=== PATIENT | female | born 1990 | race Caucasian/White ===

== ENCOUNTER 2019-01-07 21:24 | Emergency (ER) | payer OTHER ==
[~2019-01-07] VITALS: Ht 160 cm; Wt 93.9 kg
[2019-01-07 22:04] LABS: CALCIUM 8.7 mg/dL (8.5-10.1); CHLORIDE SERUM 103 mmol/L (98-107); CREATININE SERUM 0.8 mg/dL (0.6-1.0); GFR1 > 60 mL/min; GLUCOSE SERUM 119 mg/dL (74-106); POTASSIUM SERUM 3.5 mmol/L (3.5-5.1); SODIUM SERUM 141 mmol/L (136-145)
[2019-01-07 22:07] LABS: BASOPHIL % 0.3 % (0-2); PLATELET COUNT 363 x10^3mcL (130-400); RED CELL DISTRIBUTION WIDTH 14.9 % (11.5-14.5)
[2019-01-07 22:09] LABS: ALBUMIN 3.5 g/dL (3.4-5.0); ALKALINE PHOSPHATASE 217 U/L (46-116); ALT/SGPT 376 U/L (14-59); AST/SGOT 149 U/L (15-37); BILIRUBIN TOTAL 2.4 mg/dL (0.20-1.00); LIPASE 200 IU/L (73-393)
[2019-01-08 01:57] VITALS: BP 98/57
== END 2019-01-08 01:57 | disposition home or self-care (01) ==
LOC: ED 21:24
PROVIDERS: Emergency Medicine
DX: R10.13 Epigastric pain (principal); R11.2 Nausea with vomiting, unspecified; Z98.890 Other specified postprocedural states; Z90.49 Acquired absence of other specified parts of digestive tract
CPT/HCPCS: J2270; J2405; Q0092; Q9967

== ENCOUNTER 2019-01-09 12:36 | Inpatient (IN) | payer OTHER ==
[~2019-01-09] VITALS: Ht 154.9 cm; Wt 91.2 kg
[2019-01-09 12:44] VITALS: Ht 154.9 cm; Wt 91.2 kg
--- NOTE | 2019-01-09 12:54 | NUR ---
PT BIB FAMILY C/C ABD PAIN X 3 WKS STS WAS HERE X 3 DAYS AGO BUT STS PAIN IS STILL THERE DR ARREDONDO AT BEDSIDE TO KIANA
--- NOTE | 2019-01-09 13:15 | NUR ---
PLEASE ENTER FULL NAMES OF CLINICAL TRIAL SPECIALIST/RN Patient data collected by (CLINICAL TRIAL SPECIALIST):Nighat POWELL Assessment reviewed and completed by (RN):Meng TRUONG
--- NOTE | 2019-01-09 13:20 | NUR ---
XRAY AT BEDSIDE
[2019-01-09 13:27] LABS: BASOPHIL % 0.2 % (0-2); PLATELET COUNT 394 x10^3mcL (130-400); RED CELL DISTRIBUTION WIDTH 16.2 % (11.5-14.5)
[2019-01-09 13:31] LABS: CALCIUM 8.7 mg/dL (8.5-10.1); CARBON DIOXIDE 25.8 mmol/L (21-32); CHLORIDE SERUM 101 mmol/L (98-107); CREATININE SERUM 0.7 mg/dL (0.6-1.0); GFR1 > 60 mL/min; GLUCOSE SERUM 118 mg/dL (74-106); POTASSIUM SERUM 3.4 mmol/L (3.5-5.1); SODIUM SERUM 136 mmol/L (136-145)
[2019-01-09 13:36] LABS: ALBUMIN 3.6 g/dL (3.4-5.0); ALKALINE PHOSPHATASE 291 U/L (46-116); ALT/SGPT 329 U/L (14-59); AST/SGOT 157 U/L (15-37); BILIRUBIN TOTAL 3.48 mg/dL (0.20-1.00)
[2019-01-09 13:38] LABS: TOTAL PROTEIN, SERUM 8.3 g/dL (6.4-8.2)
--- NOTE | 2019-01-09 13:55 | NUR ---
LAB CALLED TO INFORM THEY ARE GOING TO RUN THE LIPASE LAB AGAIN DUE TO HIGH RESUL. PER LAB INFORMING ABOUT THE DELAY. PRIMARY NURSE ABDIRAHMAN MADE AWARE AND
[2019-01-09 14:28] LABS: LIPASE 1946 IU/L (73-393)
[2019-01-09 14:33] LABS: T3 TOTAL 0.89 ng/mL
[2019-01-09 14:47] LABS: PHOSPHOROUS 3.2 mg/dL (2.5-4.9)
[2019-01-09 14:48] LABS: CHOLESTEROL/HDL RATIO 8.1
[2019-01-09 15:13] LABS: FREE T4 1.17 ng/dL (0.76-1.46); FREE THYROXINE INDEX 3.1 ug/dL (1.4-4.5); T4(THYROXINE) 9.6 ug/dL (4.7-13.3)
--- NOTE | 2019-01-09 15:35 | NUR ---
PT ADMIT TO [facility] ROOM 209B GAVE REPORT TO KAHLIL
--- NOTE | 2019-01-09 15:38 | NUR ---
RECEIVED REPORT FROM NAVEEN CARTER IN ED. AWAITING PATIENT ARRIVAL TO FLOOR.
[2019-01-09 15:59] VITALS: BP 115/60
--- NOTE | 2019-01-09 16:01 | NUR ---
RECEIVED PT FROM ED VIA BART. ORIENTED PT TO ROOM AND SURROUNDINGS. IV NOTED TO LAC PATENT AND INTACT. INSTRUCTED PT ON THE USE OF CALL LIGHT FOR ASSISTANCE. ENDORSED PT TO PRIMARY NURSE JANAE
--- NOTE | 2019-01-09 16:47 | NUR ---
PT C/O ABD PAIN AND NAUSEA. ZOFRAN AND NORCO ADMINISTERED (SEE eMAR). IV FLUIDS STARTED NOW.
--- NOTE | 2019-01-09 18:29 | NUR ---
IN TO ADMINISTER PO KLOR FOR POTASSIUM 3.4, ALSO INFORMED PATIENT THAT A HAT IS PLACED IN THE TOILET FOR UA/ UDS COLLECTION. PT AND FAMILY VERBALIZED UNDERSTANDING.
--- NOTE | 2019-01-09 18:54 | NUR ---
RADIO COMMUNICATIONS MECHANICIAN AT BEDSIDE FOR US ABD.
--- NOTE | 2019-01-09 19:10 | NUR ---
RECEIVED PT LAYING IN BED, NO ACUTE DISTRESS OBSERVED. PT C/O INTERMITTENT NAUSEA AND ABD PAIN, DENIES AT THIS TIME, WILL MEDICATE PRN. ABD ROUND AND SOFT WITH ACTIVE BOWEL SOUNDS, NPO AT THIS TIME ORDERED. GENERALIZED WEAKNESS, AMBULATORY AND ABLE TO REPOSITION SELF IN BED. AA/OX4, ABLE TO MAKE NEEDS KNOWN, SPEECH CLEAR AND APPROPRIATE. MED-SURG, NO TELE, NO CP. PULSES PALPABLE AND EQUAL THROUGHOUT, NO EDEMA. BREATHING ON RA, EVEN AND UNLABORED, NO SOB OR DYSPNEA. VOIDS URINE FREELY WITH BRP. IV TO LAC IN PLACE, DRY, PATENT, INTACT, AND INFUSING IVF WELL, NO S&S OF PHLEBITIS OR INFILTRATION NOTED. COMFORT AND SAFETY MEASURES IN PLACE. ALL NEEDS ASSESSED AND ATTENDED TO. CALL LIGHT WITHIN REACH. WILL CONTINUE TO MONITOR
--- NOTE | 2019-01-09 19:29 | NUR ---
REPORT GIVEN TO RICKY CARTER. PATIENT RESTING COMFORTABLY IN BED WITH FAMILY AT BEDSIDE. ALL QUESTIONS AND CONCERNS ADDRESSED. ALL CARES ENDORSED.
[2019-01-09 21:23] VITALS: BP 109/57
--- NOTE | 2019-01-09 21:35 | NUR ---
PT C/O 10/ ABD PAIN WITH NAUSEA, DISTRESS NOTED WITH FACIAL GRIMACING. MEDICATED WITH PRN MORPHINE AND ZOFRAN PER EMAR
[2019-01-09 23:50] LABS: microscopic required? YES; urine erythrocyte 3+ (NEGATIVE)
[2019-01-10 00:06] LABS: AMPHETAMINE QUAL UR NONE DETECTED (See below)
--- NOTE | 2019-01-10 04:46 | NUR ---
NO SIGNIFICANT CHANGES TO REPORT, PT COMPLIED WITH NURSING CARE THROUGHOUT THE SHIFT WITH NO ACUTE EVENTS OVERNIGHT. PT LAYING IN BED, NO ACUTE DISTRESS OBSERVED, BREATHING EVEN AND UNLABORED. COMFORT AND SAFETY MEASURES MAINTAINED. ALL NEEDS ASSESSED AND ATTENDED TO. CALL LIGHT WITHIN REACH. WILL CONTINUE TO MONITOR AND ENDORSE CARE TO DAY SHIFT NURSE
[2019-01-10 05:35] VITALS: BP 136/75
[2019-01-10 06:11] VITALS: BP 136/75
[2019-01-10 06:30] LABS: BASOPHIL % 0.1 % (0-2); PLATELET COUNT 335 x10^3mcL (130-400)
[2019-01-10 06:38] LABS: RED CELL DISTRIBUTION WIDTH 16.1 % (11.5-14.5)
[2019-01-10 06:51] LABS: ALKALINE PHOSPHATASE 272 U/L (46-116); ALT/SGPT 282 U/L (14-59); AST/SGOT 163 U/L (15-37); BILIRUBIN TOTAL 4.14 mg/dL (0.20-1.00); CARBON DIOXIDE 23.2 mmol/L (21-32); CHLORIDE SERUM 103 mmol/L (98-107); CREATININE SERUM 0.7 mg/dL (0.6-1.0); GFR1 > 60 mL/min; GLUCOSE SERUM 98 mg/dL (74-106); MAGNESIUM 1.7 mg/dL (1.8-2.4); PHOSPHOROUS 3.4 mg/dL (2.5-4.9); POTASSIUM SERUM 3.2 mmol/L (3.5-5.1); SODIUM SERUM 139 mmol/L (136-145); TOTAL PROTEIN, SERUM 7.1 g/dL (6.4-8.2)
--- NOTE | 2019-01-10 07:00 | NUR ---
RECEIVED BEDSIDE REPORT FROM VACUUM EXTRACTOR OPERATOR NURSE AT THIS TIME. PATIENT RESTING COMFORTABLY IN BED. NO APPARENT DISTRESS OR DISCOMFORT NOTED. BREATHING EVEN AND UNLABORED. NO RESPIRATORY DISTRESS OR DISCOMFORT NOTED. PATIENT DENIES CHEST PAIN AT THIS TIME. NO INDICATION OF ABD PAIN/NAUSEA AT THIS TIME. GENERALIZED JAUNDICE NOTICED. IV PATENT AND INTACT. ALL QUESTIONS AND CONCERNS ADDRESSED. ALL NEEDS ATTENDED TO. WILL CONTINUE TO MONITOR
[2019-01-10 07:15] LABS: ALBUMIN 2.8 g/dL (3.4-5.0)
[2019-01-10 08:55] VITALS: BP 132/85
--- NOTE | 2019-01-10 09:42 | NUR ---
PATIENT DOWN FOR ERCP AT THIS TIME. ALL NEEDS ATTENDED TO.
--- NOTE | 2019-01-10 10:59 | NUR ---
RECEIVED REPORT FROM MARYAN CARTER AT THIS TIME. ALL QUESTIONS AND CONCERNS ADDRESSED. ALL NEEDS ATTENDED TO. AWAITING ARRIVAL OF PATIENT ON FLOOR
--- NOTE | 2019-01-10 11:16 | NUR ---
PATIENT BACK FROM ERCP AT THIS TIME. 2L NC IN PLACE. VITAL SIGNS STABLE. ALL NEEDS ATTENDED TO. WILL CONTINUE TO MONITOR
--- NOTE | 2019-01-10 11:27 | NUR ---
PATIENT C/O 10/10 ABD PAIN AT THIS TIME. PATIENT MEDICATED WITH MORPHINE IVP. PATIENT TOLERATED WELL. NO APPARENT ADVERSE EFFECTS NOTED. ALL NEEDS ATTENDED TO. WILL CONTINUE TO MONITOR
--- NOTE | 2019-01-10 13:00 | NUR ---
PATIENT SITTING UP IN BED EATING LUNCH AT THIS TIME. PATIENT TOLERATING DIET FAIRLY. ALL NEEDS ATTENDED TO. WILL CONTINUE TO MONITOR
--- NOTE | 2019-01-10 16:41 | NUR ---
PT C/O NAUSEA AND CONSTANT CRAMPING ABD PAIN 11/23; GIVEN ONDANSETRON AND MORPHINE IVP PER EMAR; REPOSITIONED PT AND DARKENED ROOM FOR COMFORT; PT AND BOYFRIEND ALSO CONCERNED THAT RESULTS FROM ERCP HAS NOT BEEN DISCUSSED W/ THEM; EXPLAINED THAT DR HAILE WILL EXPLAIN RESULTS AND PLAN OF CARE WHEN HE COMES IN. WILL ENDORSE TO EMMA PATEL.
[2019-01-10 16:51] VITALS: BP 118/68
--- NOTE | 2019-01-10 17:00 | NUR ---
DR PRASAD AWARE PATIENT MRSA POSITIVE. DR PRASAD TO ORDER MRSA MEDICATIONS. WILL MEDICATE ORDERED. WILL CONTINUE TO MONITOR
--- NOTE | 2019-01-10 18:53 | NUR ---
PATIENT C/O ABD PAIN AT THIS TIME. MEDICATED WITH DILAUDID IVP. PATIENT TOLERATED WELL NO APPARENT ADVERSE EFFECTS NOTED. IV PATENT AND INTACT. ALL QUESTIONS AND CONCERNS ADDRESSED. ALL NEEDS ATTENDED TO. SAFETY PRECAUTIONS MAINTAINED. WILL ENDORSE ALL CARE TO VETERINARY SURGEON NURSE
--- NOTE | 2019-01-10 20:29 | NUR ---
Resting at this time. No respiratory distress noted on room air. Denies pain. Denies n/v. Father at the bedside. Will cont.to monitor. Call light within reach. Contact isolation MRSA (+)nares observed.
[2019-01-10 20:40] VITALS: BP 128/70
--- NOTE | 2019-01-10 21:00 | NUR ---
Tylenol given as ordered for temp.102.6. Blankets off and cooling measures rendered. Dr. Morrissey made aware. No new order given.
--- NOTE | 2019-01-10 22:24 | NUR ---
TEMP.went down 100.8. continue on cooling measures. In no apparent distress.
--- NOTE | 2019-01-11 04:49 | NUR ---
Afebrile. No significant change in condition noted. Pain controlled. Cont.on IV levaquin, flagyl. Denies n/v. Contact isolation MRSA nares, proper use of PPE and good hand hygiene observed.
[2019-01-11 05:08] VITALS: BP 125/91
[2019-01-11 06:17] LABS: BASOPHIL % 0.1 % (0-2); PLATELET COUNT 311 x10^3mcL (130-400); RED CELL DISTRIBUTION WIDTH 15.9 % (11.5-14.5)
[2019-01-11 06:37] LABS: ALKALINE PHOSPHATASE 244 U/L (46-116); ALT/SGPT 213 U/L (14-59); AST/SGOT 98 U/L (15-37); BILIRUBIN TOTAL 3.82 mg/dL (0.20-1.00); CARBON DIOXIDE 26.6 mmol/L (21-32); CHLORIDE SERUM 104 mmol/L (98-107); CREATININE SERUM 0.7 mg/dL (0.6-1.0); GFR1 > 60 mL/min; GLUCOSE SERUM 84 mg/dL (74-106); POTASSIUM SERUM 3.2 mmol/L (3.5-5.1); SODIUM SERUM 138 mmol/L (136-145); TOTAL PROTEIN, SERUM 6.6 g/dL (6.4-8.2)
[2019-01-11 06:42] LABS: MAGNESIUM 1.7 mg/dL (1.8-2.4); PHOSPHOROUS 2.5 mg/dL (2.5-4.9)
[2019-01-11 07:10] LABS: ALBUMIN 2.5 g/dL (3.4-5.0); LIPASE 1754 IU/L (73-393)
--- NOTE | 2019-01-11 07:30 | NUR ---
RECEIVED PT FROM TYPISTS SUPERVISOR RN. Meng/JOSE. MED SURG. DENIES CHEST PAIN/PRESSURE. RESPIRATIONS EQUAL AND UNLABORED ON RA. DENIES SOB. PT DENIES ANY N/V AT THIS TIME. PT STATES SHE ONLY FELT NAUSEOUS LAST NIGHT. PT STILL C/O ABDOMINAL PAIN AND TENDERNESS TO UPPER ABDOMEN SHARP. PT STATES "IT ONLY HURTS WHEN I MOVE OR PUT PRESSURE ON MY STOMACH." IV TO RFA PATENT AND INFUSING. NO REDNESS OR SWELLING NOTED. SIGNIFICANT OTHER AT BEDSIDE. PT ASKING TO EAT BREAKFAST. WILL CONTINUE TO MONITOR. CALL LIGHT IN REACH. BED IN LOWEST POSITION.
[2019-01-11 08:15] VITALS: BP 127/76
--- NOTE | 2019-01-11 08:49 | NUR ---
PT SITTING UP IN BED. NO ACUTE RESP DISTRESS NOTED ON RA. GIVEN PO MEDS. TOLERATED WELL. PT TEMERPATURE ORAL WAS 102.7. COOLING MEASURES IN PLACE. MEDICATED PER EMAR. PT C/O ABDOMINAL PAIN TO UPPER QUAD 8/10 SHARP. MEDICATED PER EMAR. DR. PRASAD AT BEDSIDE MADE AWARE OF FEVER. WILL CONITNUE TO MONITOR. CALL LIGHT IN REACH. BED IN LOWEST POSITION.
--- NOTE | 2019-01-11 09:53 | NUR ---
PT IN BED RESTING. NO ACUTE RESP DISTRESS NOTED ON RA. PT STATES PAIN HAS IMPROVED SINCE RECEIVING DILUADID 06/23. PT REPOSITIONED SITTING UP IN BED. GIVEN PO MEDS. TOLERATED WELL. PT ATTEMPTING TO EAT BREAKFAST. ENCOURAGED PT TO TAKE SMALL AMOUNTS. PT STATES SHE STARTED TO FEEL A LITTLE NAUSEOUS. IV ANTIBIOTICS INFUSING ORDERED TO RFA. NO REDNESS OR SWELLING NOTED. WILL CONTINUE TO MONITOR. CALL LIGHT IN REACH. BED IN LOWEST POSITION.
--- NOTE | 2019-01-11 12:09 | NUR ---
SPOKE WITH DR. BARROS GIVEN RECENT LFT AND LIPASE RESULTS, GIVEN RESULTS FROM CT ABDOMEN +PELVIS AND US ABDOMEN. PER DR. BARROS ORDER REPEAT LFT AND LIPASE FOR TOMORROW MORNING. PER DR. BARROS ORDER US ABDOMEN LIMITED FOCUSED ON RUQ ABDOMEN AMD COMMON BILE DUCT. CONFIRMED ORDER SHAKEEL.
--- NOTE | 2019-01-11 14:15 | NUR ---
PT SITTING UP IN BED. NO ACUTE RESP DISTRESS NOTED ON RA. PT GIVEN PO MEDS. TOLERATED WELL. PT STATES PAIN TO ABDOMEN IS TOLERABLE AT THIS TIME. WILL CONTINUE TO MONITOR. CALL LIGHT IN REACH. BED IN LOWEST POSITION.
[2019-01-11 16:40] VITALS: BP 127/81
--- NOTE | 2019-01-11 17:34 | NUR ---
PT SITTING UP IN BED. NO ACUTE RESP DISTRESS NOTED ON RA. PT STATES PAIN TO ABDOMEN IS INCREASING. PT ASKING TO HAVE PAIN MEDICATION AFTER EATING. GIVEN PO MEDS. TOLERATED WELL. IV ANTIBIOTICS INFUSING ORDERED. NO REDNESS OR SWELLING NOTED. WILL CONTINUE TO MONITOR. CALL LIGHT IN REACH. BED IN LOWEST POSITION.
--- NOTE | 2019-01-11 18:23 | NUR ---
PT SITTING UP IN BED. FAMILY AT BEDSIDE. PT C/O ABDOMINAL PAIN 09/23 SHARP. MEDICATED PER EMAR. PT DENIES ANY N/V AT THIS TIME. PT ASKING TO HAVE A SHOWER TOMORROW. DR. PRASAD MADE AWARE, PER DR. PRASAD WILL ORDER FOR SHOWER TOMORROW. PT INFORMED TO REMAIN NPO AFTER MIDNIGHT TONIGHT FOR US ABDOMEN. PT VERBALIZED UNDERSTANDING. WILL ENDORSE CARE TO ELECTROTYPER APPRENTICE RN. CALL LIGHT IN REACH. BED IN LOWEST POSITION.
--- NOTE | 2019-01-11 19:30 | NUR ---
PT RECEIVED A/O X4, DROWSY, ABLE TO MAKE NEEDS KNOWN. FAMILY AT BEDSIDE. MED-SURG, PT DENIES ANY CP/PRESSURE. PULSES PALPABLE, NO EDEMA PRESENT. BREATHING IS EVEN AND UNLABORED ON RA, NO RESP DISTRESS NOTED. ABD SOFT AND NONDISTENDED, PT REPORTS EPISODES OF N/V. VOIDS FREELY, BRP. GENERALIZED WEAKNESS, AMBULATORY WITH ASSIST. SKIN IS WARM AND DRY, INTACT. PT DENIES HAVING ANY PAIN AT THIS TIME. IVF INFUSING WELL TO RW, SITE WNL. NO ACUTE DISTRESS NOTED. BED IN LOWEST SETTING, SIDE RAILS UP X2, CALL LIGHT WITHIN REACH. WILL CONT TO MONITOR.
--- NOTE | 2019-01-11 19:30 | NUR ---
PT RECEIVED A/O X4, DROWSY, ABLE TO MAKE NEEDS KNOWN. FAMILY AT BEDSIDE. MED-SURG, PT DENIES ANY CP/PRESSURE. PULSES PALPABLE, NO EDEMA PRESENT. BREATHING IS EVEN AND UNLABORED ON RA, NO RESP DISTRESS NOTED. ABD SOFT AND NONDISTENDED, PT REPORTS EPISODES OF N/V. VOIDS FREELY, BRP. GENERALIZED WEAKNESS, AMBULATORY WITH ASSIST. SKIN IS WARM AND DRY, INTACT. PT DENIES HAVING ANY PAIN AT THIS TIME. IVF INFUSING WELL TO RW, SITE WNL. CONTACT PRECAUTIONS IN PLACE FOR MRSA NARES (+). NO ACUTE DISTRESS NOTED. BED IN LOWEST SETTING, SIDE RAILS UP X2, CALL LIGHT WITHIN REACH. WILL CONT TO MONITOR.
[2019-01-11 20:12] VITALS: BP 133/86
--- NOTE | 2019-01-11 21:39 | NUR ---
PT C/O N/V, PRN ZOFRAN IVP GIVEN ORDERED. EMESIS BAG PROVIDED. NO ACUTE DISTRESS NOTED. WILL CONT TO MONITOR.
--- NOTE | 2019-01-12 00:43 | NUR ---
PT RESTING IN BED, AWAKE AND WATCHING TV. BREATHING IS EVEN AND UNLABORED, NO RESP DISTRESS NOTED. PT C/O 10/ ABD PAIN, PRN DILAUDID GIVEN ORDERED. PT ASSISTED TO BATHROOM WITHOUT INCIDENT. IVF INFUSING WELL, SITE WNL. NO ACUTE DISTRESS NOTED. CALL LIGHT WITHIN REACH. WILL CONT TO MONITOR.
[2019-01-12 05:47] VITALS: BP 125/82
--- NOTE | 2019-01-12 05:47 | NUR ---
PT SLEPT AT INTERVALS THROUGHOUT THE EVENING. BREATHIGN IS EVEN AND UNLABORED, NO RESP DISTRESS NOTED. PT DENIES HAVING ANY PAIN AT THIS TIME. PT NPO FOR AT THIS TIME FOR US ABD. NO ACUTE CHANGES ENCOUNTERED DURING SHIFT. ALL NEEDS MET AND ANTICIPATED. PT COMPLIANT WITH NURSING CARE. IVF INFUSING WELL, SITE WNL. CONTACT PRECAUTIONS MAINTAINTED. CALL LIGHT WITHIN REACH. WILL ENDORSE CARE TO AM NURSE.
[2019-01-12 07:14] LABS: BASOPHIL % 0.2 % (0-2); PLATELET COUNT 300 x10^3mcL (130-400)
--- NOTE | 2019-01-12 07:15 | NUR ---
SEEN PATIENT AOX4, MED SURG, REGULAR RATE AND RHYTHM, MODERATE PULSES, NO EDEMA, CTA ON BLF, ON RA, C/O SHARP EPIGASTRIC PAIN RADIATING TO BACK WITH PS 9/10, IV AT RW INTACT AND PATENT, NO REDNESS. CALL LIGHT WITHIN REACH. BED AT LOWEST POSITION.
[2019-01-12 07:30] LABS: ALKALINE PHOSPHATASE 220 U/L (46-116); ALT/SGPT 157 U/L (14-59); AST/SGOT 58 U/L (15-37); BILIRUBIN DIRECT 1.32 mg/dL (0.0-0.2); BILIRUBIN TOTAL 1.7 mg/dL (0.20-1.00); CALCIUM 8.2 mg/dL (8.5-10.1); CARBON DIOXIDE 25.1 mmol/L (21-32); CHLORIDE SERUM 104 mmol/L (98-107); CREATININE SERUM 0.6 mg/dL (0.6-1.0); GFR1 > 60 mL/min; GLUCOSE SERUM 86 mg/dL (74-106); LIPASE 1003 IU/L (73-393); MAGNESIUM 1.7 mg/dL (1.8-2.4); PHOSPHOROUS 3.3 mg/dL (2.5-4.9); POTASSIUM SERUM 3.5 mmol/L (3.5-5.1); SODIUM SERUM 140 mmol/L (136-145); TOTAL PROTEIN, SERUM 6.8 g/dL (6.4-8.2)
[2019-01-12 07:32] LABS: ALBUMIN 2.4 g/dL (3.4-5.0)
[2019-01-12 08:24] LABS: RED CELL DISTRIBUTION WIDTH 15.5 % (11.5-14.5)
--- NOTE | 2019-01-12 09:00 | NUR ---
PATIENT SEEN BY DR METZ . VERBALIZED EPIGASTRIC PAIN RADIATING TO BACK. DR METZ ORDERED CLEAR LIQUID DIET.
[2019-01-12 09:09] VITALS: BP 132/95
--- NOTE | 2019-01-12 10:19 | NUR ---
SEEN PATIENT AWAKE, COHERENT, RESPONSIVE, METRONIDAZOLE IVPB GIVEN. IV INTACT AND PATENT, NO REDNESS OR INFILTRATION. CALL LIGHT WITHIN REACH. BED AT LOWEST POSITION.
--- NOTE | 2019-01-12 10:56 | NUR ---
PATIENT GIVEN DILAUDID IVP AT 1055. ABDOMINAL PAIN NOTED TO BE ACHING AND PRESSURE LIKE WITH PS 8/10. CALL LIGHT WITHIN REACH . BED AT LOWEST POSITION. WILL CONTINUE TO MONITOR PAIN.
--- NOTE | 2019-01-12 11:56 | NUR ---
PATIENT TRANSPORTED TO CT SCAN BY [facility]. IV SWITCHED TO [place].
--- NOTE | 2019-01-12 12:21 | NUR ---
PATIENT TRANSPORTED BACK TO ROOM BY [facility].ABDOMINAL CT SCAN WITH CONTRAST COMPLETED. IV RESTARTED. CALL LIGHT WITHIN REACH. BED AT LOWEST POSITION.
--- NOTE | 2019-01-12 13:23 | NUR ---
PROTONIX GIVEN IV. IV INTACT AND PATENT. NO REDNESS OR INFLAMMATION.
--- NOTE | 2019-01-12 15:37 | NUR ---
IN AND SEEN PT, HE SAID TO KEEP PT NPO FOR NOW AND IF PT IS DOING BETTER TOMORROW MORNING TO START ON CLEAR LIQD DIET. DAIANA RN ASSIGNED TO THIS PT MADE AWARE OF ABOVE.
--- NOTE | 2019-01-12 16:27 | NUR ---
PATIENT HAD C/O INTERMITTENT CRAMPING ABDOMINAL PAIN. CURRENTLY NO PAIN AT THIS TIME. PO MEDICATIONS GIVEN. PATIENT TOLERATED MEDICATIONS. CALL LIGHT AT BEDSIDE. BED AT LOWEST POSITION.
--- NOTE | 2019-01-12 17:14 | NUR ---
SEEN PATIENT AOX4, NOT IN DISTRESS. PAIN AT EPIGASTRIC AREA RADIATING TO BACK. PATIENT COMPLAINED OF PAIN AT IV SITE R WRIST. NO REDNESS OR INFILTRATION NOTED. DISCONNECTED IV AND INSERTED METRONIDAZOLE VIA IVPB INFUSING AT LFA. NO REDNESS OR INFILTRATION. CALL LIGHT WITHIN REACH. BED AT LOWEST POSITION
[2019-01-12 17:17] VITALS: BP 135/79
--- NOTE | 2019-01-12 18:43 | NUR ---
SEEN PATIENT AOX4. NO SUBJECTIVE COMPLAINTS. NOT IN DISTRESS. IV PROTONIX INFUSING AT 10CC/HR TO LFA, NO REDNESS OR INFILTRATION. CALL LIGHT WITHIN REACH. BED AT LOWEST POSITION
--- NOTE | 2019-01-12 19:20 | NUR ---
RECIEVED PT RESTING IN BED WITH FAMILY AT BEDSIDE, ASSESMENT PERFORMED AT THIS TIME, PT IS A/OX4 AT THIS TIME, WITH NO COMPLAINTS OF FLORES OR DIZZINESS, PT DENIES PAIN OR SOB AT THIS TIME, BOWEL SOUNDS HYPOACTIVE, RIGHT SIDE OF ABD FIRN AND RUQ TENDER UPON PALPATION, IV TO THE LAC D5 1/2 NS AT 80 ML PER HOUR, SAFETY PRECAUTIONS IN PLACE, WILL CONTINUE TO MONITOR
--- NOTE | 2019-01-12 19:25 | NUR ---
RECIEVED PT RESTING IN BED WITH NO ACUTE DISTRESS NOTED AT THIS TIME WITH TWO FAMILY MEMBERS AT BEDSIDE. ASSESMENT PERFORMED AT THIS TIME, PT IS A/OX4 NO COMPLAINTS OF FLORES OR DIZZINESS, PT DENIES PAIN OR SOB AT THIS TIME, AB IS TENDER UPON LIGHT PALPATION IN THE MID UPPER EPIGASTRIC AREA. IVS TO THE LFA AND RW, IV CDI, FLUSHES WELL, ALL NEEDS ATTENDED TO, SAFETY PRECAUTIONS IN PLACE, WILL CONTINUE TO MONITOR
--- NOTE | 2019-01-12 21:12 | NUR ---
PT REPORTS NAUSEA AND VOMITTING, ADMINISTERED ZOFRAN PER PRN ORDER, WILL CONTINUE TO MONITOR
[2019-01-12 21:14] VITALS: BP 125/82
--- NOTE | 2019-01-12 21:40 | NUR ---
PT REPORTS NAUSEA AND VOMITTING HAS IMPROVED
--- NOTE | 2019-01-12 22:04 | NUR ---
PT BP NOW 153/62, WILL CONTINUE TO MONITOR
--- NOTE | 2019-01-12 22:48 | NUR ---
PT BP 186/82, PT IS ASYMPTOMATIC, ADMINISTERED PTS SCHEDULED BP MEDS WILL CONTINUE TO MONITOR AND RETAKE BP
--- NOTE | 2019-01-13 00:20 | NUR ---
PT RESTING IN BED WITH NO ACUTE DISTRESS NOTED AT THIS TIME, PT SIGNIFICAT OTHER AT BEDSIDE IN RECLYNER, PT DENIES PAIN OR SOB AT THIS TIME, ALL NEEDS ATTENDED TO, SAFETY PRECAUTIONS IN PLACE WILL CONTINUE TO MONITOR
--- NOTE | 2019-01-13 02:02 | NUR ---
PT RESTING IN BED AND DENIES PAIN OR SOB, SIGNIFICANT OTHER RESTING AT BEDSIDE, WITH NO ACUTE DISTRESS NOTED AT THIS TIME, ALL NEEDS ATTENDED TO SAFETY PRECAUTIONS IN PLACE WILL CONTINUE TO MONITOR
--- NOTE | 2019-01-13 05:21 | NUR ---
PT RESTED THROUGH NIGHT, PT HAD ONE EPISODE OF NAUSEA THAT WAS TREATED WITH PRN ZOFRAN TO EFFECT, AND HAD ONE EPISODE OF SEVERE PAIN TO THE EPIGASTRIC AREA THAT WAS TREATED WITH PRN DILAUDID, ALL PT NEEDS WERE ATTENDED TO, SAFETY PRECAUTIONS REMAINED IN PLACE, SIGNIFICANT OTHER REMAINED AT BEDSIDE THROUGH SHIFT, WILL CONTINUE TO MONITOR AND ENDORSE CARE
[2019-01-13 05:32] VITALS: BP 133/90
[2019-01-13 06:05] LABS: BASOPHIL % 0.2 % (0-2); PLATELET COUNT 328 x10^3mcL (130-400)
[2019-01-13 06:33] LABS: CHLORIDE SERUM 106 mmol/L (98-107); CREATININE SERUM 0.6 mg/dL (0.6-1.0); GFR1 > 60 mL/min; GLUCOSE SERUM 80 mg/dL (74-106); MAGNESIUM 1.9 mg/dL (1.8-2.4); PHOSPHOROUS 4.2 mg/dL (2.5-4.9); POTASSIUM SERUM 3.5 mmol/L (3.5-5.1); SODIUM SERUM 142 mmol/L (136-145)
[2019-01-13 07:08] LABS: RED CELL DISTRIBUTION WIDTH 15.4 % (11.5-14.5)
--- NOTE | 2019-01-13 07:20 | NUR ---
SEEN AOX4, NOT IN DISTRESS, PATIENT VERBALIZED SHE IS OK. CTA ON BLF, REGULAR RATE AND RHYTHM, NO CHEST PAIN, PALPITATIONS, SOB,PALPABLE PULSES, NO EDEMA NORMOACTIVE BS, GENERALIZED WEAKNESS, LIMITED ROM DUE TO PAIN, SKIN DRY AND INTACT. IV INTACT AND PATENT, LR INFUSING WELL AT RW. NO REDNESS OR INFILTRATION. IV INTACT AND PATENT AT LFA. NO REDNESS OR INFILTRATION. CALL LIGHT WITHIN REACH. BED AT LOWEST POSITION.
[2019-01-13 07:31] LABS: ALBUMIN 2.4 g/dL (3.4-5.0); BILIRUBIN DIRECT 0.89 mg/dL (0.0-0.2); BILIRUBIN TOTAL 1.18 mg/dL (0.20-1.00); TOTAL PROTEIN, SERUM 6.7 g/dL (6.4-8.2)
[2019-01-13 08:02] VITALS: BP 129/88
--- NOTE | 2019-01-13 08:52 | NUR ---
SEEN ASLEEP, RESPONSIVE TO VERBAL STIMULI, NOT IN DISTRESS, PO MEDICATIONS GIVEN. LEVAQUIN IVPB INFUSING WELL , NO REDNESS OR INFILTRATION AT IV SITE RW. CALL LIGHT WITHIN REACH. BED AT LOWEST POSITION.
--- NOTE | 2019-01-13 09:55 | NUR ---
SEEN BY DR. RIVAS. NEW DIET ORDER FOR CLEAR LIQUIDS.
--- NOTE | 2019-01-13 10:00 | NUR ---
SEEN PATIENT AOX4, AMBULATING , C/O ABD PAIN AT EPIGASTRIC AREA. LIMITED ROM DUE TO PAIN. ENCOURAGED TO AMBULATE IN THE ROOM. HIBICLENS BATH GIVEN. PATIENT VERBALIZED LIMITED MOVEMENT DUE TO PAIN. IV INTACT AND PATENT. CALL LIGHT WITHIN REACH. BED AT LOWEST POSITION.
--- NOTE | 2019-01-13 13:38 | NUR ---
SEEN SITTING , NOT IN DISTRESS. PO MEDICATIONS TAKEN . NO SUBJECTIVE COMPLAINTS, IV INTACT AND PATENT. NO REDNESS OR INFILTRATION. CALL LIGHT WITHIN REACH. BED AT LOWEST POSITION.
--- NOTE | 2019-01-13 15:47 | NUR ---
SEEN PATIENT SITTING , NOT IN DISTRESS. HAS MILD ABD PAIN PS OF 4/10. IV INTACT AND INFUSING WELL. NO REDNESS OR INFILTRATION. CALL LIGHT WITHIN REACH BED AT LOWEST POSITION.
--- NOTE | 2019-01-13 15:49 | NUR ---
SEEN PATIENT AT BED SITTING . AOX4 . PO MEDICATIONS GIVEN. PROTONIX INFUSING AT 10CC/HR
[2019-01-13 15:57] VITALS: BP 134/77
--- NOTE | 2019-01-13 16:42 | NUR ---
SEEN PATIENT SITTING , AOX4, RESPONSIVE, MILD PAIN WITH PS OF 4/10. NO NAUSEA OR VOMITING. ABLE TO VOID 5X WITH NO DYSURIA, 1 EPISODE OF SOFT FORMED BOWEL MOVEMENT. ABLE TO TOLERATE LIQUID DIET. CALL LIGHT WITHIN REACH . BED AT LOWEST POSITION. IV INTACT AND PATENT. NO REDNESS OR INFILTRATION AT RW AND LFA.
--- NOTE | 2019-01-13 17:37 | NUR ---
SEEN PATIENT , RESTING COMFORTABLY, NO SUBJECTIVE COMPLAINTS. METRONIDAZOLE IVPB INFUSING WELL AT LFA . NO REDNESS OR INFILTRATION. CALL LIGHT WITHIN REACH. BED AT LOWEST POSITION
--- NOTE | 2019-01-13 19:15 | NUR ---
RECEIVED REPORT FROM DAY SHIFT NURSE, REBEKAH CARTER. PT IS AAOX4. SPEECH IS CLEAR. DENIES FLORES. MED-SURG PT. DENIES CP. PULSES ARE PALPABLE. NO EDEMA NOTED. BREATHING IS EVEN AND UNALBORED ON RA. LUNG SOUNDS CTA. NO SIGNS OF RESP. DISTRESS. ABD IS SOFT AND ROUND. PT C/O ABD PAIN, BUT STATES IT IS BAREABLE AT THIS TIME. ENCOURAGED PT TO USE CALL LIGHT WHEN THE PAIN BECOMES INTOLERABLE. VOIDS FREELY. DENIES DYSURIA. GENERALIZED WEAKNESS. AMBULATORY. SKIN INTACT. IV TO RW AND LFA DRY AND INTACT. NO ERYTHEMA NOTED. BED IN LOWEST POSITION. CALL LIGHT WITHIN REACH. WILL CONTINUE TO MONITOR.
[2019-01-13 20:12] VITALS: BP 112/79
--- NOTE | 2019-01-13 21:07 | NUR ---
ROUTINE MEDICATIONS GIVEN AND TOLERATED WELL. NO ACUTE DISTRESS NOTED. PT C/O 8/10 SHARP EPIGASTRIC PAIN. MEDICATED WITH DILAUDID PRN PER APR ORDER. WILL REASSESS AND CHECK EFFECTIVENESS. BED IN LOWEST POSITION. CALL LIGHT WITHIN REACH. BOYFRIEND AT BEDSIDE. WILL CONTINUE TO MONITOR.
--- NOTE | 2019-01-13 23:25 | NUR ---
PT IS RESTING IN BED COMFORTABLY, ON HER PHONE. BREATHING IS EVEN AND UNLABORED ON RA. NO SIGNS OF RESP. DISTRESS. DENIES PAIN AT THIS TIME. BED IN LOWEST POSITION. CALL LIGHT WITHIN REACH. WILL CONTINUE TO MONITOR.
--- NOTE | 2019-01-14 01:18 | NUR ---
PT IS RESTING IN BED, ON HER PHONE. BREATHING IS EVEN AND UNLABORED ON RA. NO SIGNS OF RESP. DISTRESS. PT C/O ABD PAIN, BUT STATES IT IS BAREABLE. ENCOURAGED PT TO CALL WHEN PAIN INCREASES. BED IN LOWEST POSITION. CALL LIGHT WITHIN REACH. WILL CONTINUE TO MONITOR.
--- NOTE | 2019-01-14 03:21 | NUR ---
PT C/O 8/10 SHARP EPIGASTRIC PAIN. WILL MEDICATE WITH DILAUDID PRN PER MAR ORDER. BREATHING IS EVEN AND UNLABORED ON RA. NO SIGNS OF RESP. DISTRESS. BED IN LOWEST POSITION. CALL LIGHT WITHIN REACH. WILL CONTINUE TO MONITOR.
--- NOTE | 2019-01-14 03:35 | NUR ---
MEDICATED PT WITH TYLENOL 650 MG D/T PTS HR, 56. WILL REASSESS AND CHECK EFFECTIVENESS.
--- NOTE | 2019-01-14 04:58 | NUR ---
PT SLEPT IN INTERVALS THROUGHOUT THE NIGHT AND COMPLIED WITH NURSING CARE WITH NO ACUTE EVENTS OCCURRING DURING THE SHIFT. COMFORT AND SAFETY MEASURES MAINTAINED. PAIN MANAGEMENT MAINTAINED. ALL NEEDS ASSESSED AND ATTENDED TO. WILL CONTINUE TO MONITOR AND ENDORSE CARE TO DAY SHIFT NURSE.
[2019-01-14 05:41] VITALS: BP 111/56
[2019-01-14 06:31] LABS: BASOPHIL % 0.4 % (0-2); PLATELET COUNT 354 x10^3mcL (130-400)
[2019-01-14 06:45] LABS: RED CELL DISTRIBUTION WIDTH 15.4 % (11.5-14.5)
[2019-01-14 06:49] LABS: CALCIUM 8.4 mg/dL (8.5-10.1); CARBON DIOXIDE 24.5 mmol/L (21-32); CHLORIDE SERUM 105 mmol/L (98-107); CREATININE SERUM 0.7 mg/dL (0.6-1.0); GFR1 > 60 mL/min; GLUCOSE SERUM 109 mg/dL (74-106); PHOSPHOROUS 3.9 mg/dL (2.5-4.9); POTASSIUM SERUM 3.1 mmol/L (3.5-5.1); SODIUM SERUM 139 mmol/L (136-145)
--- NOTE | 2019-01-14 07:40 | NUR ---
RECEIVED PT LYING IN BED, EYES CLOSED. AROUSABLE TO VOICE. BREATHING EQUAL/UNLABORED ON RA. NO ACUTE PAIN/ DISTRESS AT THIS TIME. IVF RUNNING. NO REDNESS/ SWELLING TO IV SITES. BED IN LOW POSITION, CALL LIGHT IN REACH, SAFETY PRECAUTIONS IN PLACE. WILL CONTINUE TO MONITOR
[2019-01-14 09:03] VITALS: BP 124/77
[2019-01-14] MEDS ORDERED: LEVOFLOXACIN500 M1 PO (09:28)
[2019-01-14] MEDS ORDERED: FLA500 PO (09:29)
[2019-01-14] MEDS ORDERED: GOOD SENSE OMEP20 MG PO (09:29)
[2019-01-14] MEDS ORDERED: CARAFATE1 GM PO (09:30)
[2019-01-14] MEDS ORDERED: MOT400 PO (09:31)
[2019-01-14 09:39] VITALS: BP 124/77
--- NOTE | 2019-01-14 11:05 | NUR ---
PT LYING IN BED, A/A. BREATHING EQUAL/UNLABORED ON RA. NO ACUTE PAIN/ DISTRESS. IVF RUNNING. NO REDNESS/ SWELLING TO IV SITE. BED IN LOW POSITION, CALL LIGHT IN REACH, SAFETY PRECAUTIONS IN PLACE. WILL CONTINUE TO MONITOR
[2019-01-14 12:13] VITALS: BP 118/73
--- NOTE | 2019-01-14 13:41 | NUR ---
PT DC'D HOME. PT A/A, ORIENTED X4, BREATHING EQUAL/UNLABORED ON RA, NO ACUTE PAIN/DISTRESS. PT DISCHARGE INSTRUCTIONS/ EDUCATION, F/U APPT, AND NEW RX DISCUSSED, PT VERBALIZED UNDERSTANDING. IV REMOVED WITH CATHETER INTACT, NO REDNESS/ SWELLING TO IV SITE. PT BROUGHT DOWN TO LOBBY IN W/C, ACCOMPANIED BY ME. ALL BELONGINGS WITH PT.
== END 2019-01-14 13:35 | disposition home or self-care (01) | DRG 282 ==
LOC: ED 12:36 → MU 13:43
PROVIDERS: Emergency Medicine; Internal Medicine Gastroenterology; ADMIT Internal Medicine
PROC: BF10YZZ Fluoroscopy of Bile Ducts using Other Contrast (ICD-10-PCS; principal; 2019-01-10 10:30)
PROC: 0F798ZZ Dilation of Common Bile Duct, Via Natural or Artificial Opening Endoscopic (ICD-10-PCS; 2019-01-10 10:30)
DX: K85.90 Acute pancreatitis without necrosis or infection, unspecified (principal); K83.1 Obstruction of bile duct; K75.9 Inflammatory liver disease, unspecified; D72.829 Elevated white blood cell count, unspecified; K29.00 Acute gastritis without bleeding; F12.10 Cannabis abuse, uncomplicated; I88.0 Nonspecific mesenteric lymphadenitis; E87.6 Hypokalemia; Z68.35 Body mass index [BMI] 35.0-35.9, adult; Z90.49 Acquired absence of other specified parts of digestive tract; Z83.3 Family history of diabetes mellitus; Z82.3 Family history of stroke; E78.1 Pure hyperglyceridemia; E78.00 Pure hypercholesterolemia, unspecified; E83.42 Hypomagnesemia; E66.9 Obesity, unspecified
CPT/HCPCS: 43262; 84439; C1769; C9113; G0378; J0696; J1170; J1610; J1956; J2250; J2270; J2405; J3010; J3490; J7030; J7050; J7060; J7120; Q0092; Q9967

== ENCOUNTER 2019-04-17 02:08 | Emergency (ER) | payer OTHER ==
[~2019-04-17] VITALS: Ht 160 cm; Wt 92.5 kg
[~2019-04-17 02:08] MED LIST: CARAFATE1 GM PO; FLA500 PO; GOOD SENSE OMEP20 MG PO; LEVOFLOXACIN500 M1 PO; MOT400 PO
[2019-04-17 02:20] VITALS: Ht 160 cm; Wt 92.5 kg
[2019-04-17 07:07] LABS: CALCIUM 8.5 mg/dL (8.5-10.1); CARBON DIOXIDE 22.5 mmol/L (21-32); CHLORIDE SERUM 106 mmol/L (98-107); CREATININE SERUM 0.6 mg/dL (0.6-1.0); GFR1 > 60 mL/min; GLUCOSE SERUM 106 mg/dL (74-106); POTASSIUM SERUM 4.4 mmol/L (3.5-5.1); SODIUM SERUM 138 mmol/L (136-145)
[2019-04-17 07:11] LABS: ALKALINE PHOSPHATASE 91 U/L (46-116); ALT/SGPT 28 U/L (14-59); AST/SGOT 59 U/L (15-37); LIPASE 185 IU/L (73-393); TOTAL PROTEIN, SERUM 7.2 g/dL (6.4-8.2)
[2019-04-17 07:14] LABS: ALBUMIN 2.6 g/dL (3.4-5.0)
[2019-04-17 07:16] LABS: BASOPHIL % 0.5 % (0-2); PLATELET COUNT 348 x10^3mcL (130-400)
[2019-04-17 07:18] LABS: RED CELL DISTRIBUTION WIDTH 15.1 % (11.5-14.5)
[2019-04-17 08:16] VITALS: BP 100/58
== END 2019-04-17 06:00 | disposition home or self-care (01) ==
LOC: ED 02:08
PROVIDERS: Emergency Medicine
DX: O26.892 Other specified pregnancy related conditions, second trimester (principal); R10.10 Upper abdominal pain, unspecified; R11.0 Nausea; Z3A.14 14 weeks gestation of pregnancy
CPT/HCPCS: 36415; J7030; Q0092